=== PATIENT | male | born 1975 | race Caucasian/White ===

== ENCOUNTER 2016-05-09 16:57 | Emergency (ER) | payer OTHER ==
[~2016-05-09] VITALS: Ht 175.3 cm; Wt 83.6 kg
[~2016-05-09 16:57] MED LIST: HYDR50TA94 PO; LORA2TAB7 PO; LOSA50TA PO; METO25TA3 PO
[2016-05-09 16:59] VITALS: BP 112/72; PULSE 125; RESP 15; TEMP 97.9; O2SAT 95
[2016-05-09] MEDS ORDERED: SODIUM CHLOR 0.9% 1000 ML INJ 1,000 ML IV SCH (17:33)
[2016-05-09 17:35] LABS: MEAN CORPUSCULAR HGB CONC 36.1 % (32.0-36.0)
[2016-05-09] MEDS ORDERED: HYDR50CA PO (17:44)
[2016-05-09] MEDS ORDERED: ZOFR8TAB PO (17:44)
[2016-05-09] MEDS ORDERED: PERC10TA27 PO (17:44)
[2016-05-09] MEDS ORDERED: PROC10TA PO (17:44)
[2016-05-09] MEDS ORDERED: AMBI10TA PO (17:44)
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
[2016-05-09] MEDS ORDERED: LORazepam 2 MG/ML VIAL IV PUSH ONE (18:15)
[2016-05-09 18:32] LABS: AUTOMATED NEUTROPHIL # 8.1 TH/MM3 (1.8-7.7); BASOPHIL % 0.1 % (0.0-2.0); EOSINOPHIL # 0.1 TH/MM3 (0-0.4); EOSINOPHIL % 0.6 % (0.0-4.0); HEMATOCRIT 32.1 % (39.0-51.0); LYMPH % 7.4 % (9.0-44.0); LYMPHOCYTE # 0.7 TH/MM3 (1.0-4.8); MEAN CELL VOLUME 97.1 FL (80.0-100.0); MONO % 11.7 % (0.0-8.0); NEUT % 80.2 % (16.0-70.0); PLATELET COUNT 196 TH/MM3 (150-450); RED CELL DISTRIBUTION WIDTH 17.6 % (11.6-17.2); WHITE BLOOD COUNT 10.1 TH/MM3 (4.0-11.0)
[2016-05-09 18:35] LABS: HEMO FLAGS AUTO DIFF
--- NOTE | 2016-05-09 18:54 | PD ---
Data Data Last Documented VS Vital Signs Date Time Temp Pulse Resp B/P Pulse Ox O2 Delivery O2 Flow Rate FiO2 05/09/16 17:50 109 18 95 Room Air 05/09/16 16:59 97.9 112/72 Orders Electrocardiogram (05/09/16 17:33) Complete Blood Count With Diff (05/09/16 17:33) Basic Metabolic Panel (Bmp) (05/09/16 17:33) Magnesium (Mg) (05/09/16 17:33) Sodium Chlor 0.9% 1000 Ml Inj (Ns 1000 M (05/09/16 17:33) Lorazepam Inj (Ativan Inj) (05/09/16 18:15) Labs Laboratory Tests Test 05/09/16 18:05 White Blood Count 10.1 TH/MM3 Red Blood Count 3.30 MIL/MM3 Hemoglobin 11.6 GM/DL Hematocrit 32.1 % Mean Corpuscular Volume 97.1 FL Mean Corpuscular Hemoglobin 35.0 PG Mean Corpuscular Hemoglobin 36.1 % Concent Red Cell Distribution Width 17.6 % Platelet Count 196 TH/MM3 Mean Platelet Volume 9.1 FL Neutrophils (%) (Auto) 80.2 % Lymphocytes (%) (Auto) 7.4 % Monocytes (%) (Auto) 11.7 % Eosinophils (%) (Auto) 0.6 % Basophils (%) (Auto) 0.1 % Neutrophils # (Auto) 8.1 TH/MM3 Lymphocytes # (Auto) 0.7 TH/MM3 Monocytes # (Auto) 1.2 TH/MM3 Eosinophils # (Auto) 0.1 TH/MM3 Basophils # (Auto) 0.0 TH/MM3 CBC Comment AUTO DIFF MDM Supervised Visit with [facility]: Yes Narrative Course The history, exam, and medical decision-making in the associated mid-level provider note were completed with my assistance. I reviewed and agree with the findings presented. I attest that I had a [id number] encounter with the patient on the same day, and personally performed and documented my assessment and findings in the medical record. *My assessment and Findings: 40-year-old man with tachycardia, sent over from radiation therapy. 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 He also is getting cisplatin therapy. He states he last got chemotherapy 2 weeks ago. He received a Neulasta shot yesterday. He looks well. He has no symptoms. Denies any chest pain trouble breathing fevers or chills. He did have some URI symptoms that he was recovering from emergency department better now. We'll check labs, IV fluids. He drinks alcohol daily. Last drank today. He does take Ativan as needed. He hasn't needed it recently. If labs look okay and his heart rate comes out we will plan on discharge for outpatient follow-up. Hi Mcghee MD May 09, 2016 18:54
[2016-05-09 19:39] LABS: BANDS 18 % (0-6); NEUTROPHIL # MANUAL DIFF 8.5 TH/MM3 (1.8-7.7); POLYS (SEG NEUTROPHILS) 66 % (16-70); WBC DIFF SAMPLE 100
[2016-05-09 19:40] LABS: PLATELET ESTIMATE SMEAR NORMAL (NORMAL); PLATELET MORPHOLOGY NORMAL (NORMAL); SCAN/DIFF FINAL DIFF MANUAL
[2016-05-09 19:55] VITALS: BP 118/70; PULSE 118; RESP 14; O2SAT 97
[2016-05-09 20:30] LABS: BICARBONATE 25.9 MEQ/L (21.0-32.0); MAGNESIUM 1.8 MG/DL (1.5-2.5); POTASSIUM 3.8 MEQ/L (3.5-5.1)
[2016-05-09 20:58] VITALS: BP 114/68; PULSE 112; RESP 14; O2SAT 98
--- NOTE | 2016-05-11 07:02 | EKG ---
Date Performed: 05/09/2016 Time Performed: 18:16:03 PTAGE: 40 years EKG: SINUS TACHYCARDIA ABNORMAL RHYTHM ECG NO PREVIOUS TRACING DOCTOR: Terry Arvizu Interpretating Date/Time 05/11/2016 06:59:29
== END 2016-05-09 21:58 | disposition home or self-care (01) ==
LOC: NEPE 16:57
DX: R00.0 Tachycardia, unspecified (principal); R94.31 Abnormal electrocardiogram [ECG] [EKG]; C02.9 Malignant neoplasm of tongue, unspecified; Z87.891 Personal history of nicotine dependence; Z86.59 Personal history of other mental and behavioral disorders
CPT/HCPCS: 80048; 83735; 85007; 85027; 93005; 96374; 99285; J2060; J7030